=== PATIENT | female | born 1980 | race Asian ===

== ENCOUNTER 2018-05-15 19:46 | Emergency (ER) | payer BC ==
[~2018-05-15] VITALS: Ht 167.6 cm; Wt 54.4 kg
[~2018-05-15 19:46] MED LIST: HYDACE5 PO; IBUP600; IBUP800 PO; OSEL75CA PO; OXYACE5T PO; PREN-16 PO; PROM25 PO
[2018-05-15 20:14] LABS: BASOPHILS ABSOLUTE AUTO 0.09 K/mm3 (0.00-0.23); BASOPHILS PERCENT AUTO 0 % (0-2); EOSINOPHILS ABSOLUTE AUTO 0.05 K/mm3 (0.00-0.68); EOSINOPHILS PERCENT AUTO 0 % (0-6); Hematocrit 45.6 % (33.0-51.0); Hemoglobin 15.3 g/dL (11.5-16.0); IMMATURE GRAN ABSOLUTE AUTO 0.18 K/mm3 (0.00-0.10); IMMATURE GRAN PERCENT AUTO 1 % (0-1); LYMPHOCYTES PERCENT AUTO 5 % (21-46); MONOCYTES ABSOLUTE AUTO 2.14 K/mm3 (0.16-1.47); MONOCYTES PERCENT AUTO 8 % (4-13); Mean Corpuscular HGB 31.1 pg (26.0-34.0); Mean Corpuscular HGB Conc 33.6 g/dL (31.5-36.5); Mean Corpuscular Volume 93 fL (80-100); Mean Platelet Volume 9.4 fL (9.1-12.4); NEUTROPHILS ABSOLUTE AUTO 23.59 K/mm3 (1.96-9.15); NEUTROPHILS PERCENT AUTO 86 % (41-73); Platelet Count 374 K/mm3 (150-400); RDW Coefficient Variation 11.9 % (11.7-14.2); RDW Standard Deviation 40.5 fL (35.1-46.3); Red Blood Cell Count 4.92 M/mm3 (3.80-5.20); White Blood Cell Count 27.55 K/mm3 (4.00-11.30)
[2018-05-15 20:40] LABS: Alanine Aminotransfer (ALT/SGP 24 U/L (12-78); Albumin, Blood 4.9 g/dL (3.4-5.0); Albumin/Globulin Ratio 1.3 (0.8-1.8); Alk Phos 47 U/L (50-136); Anion Gap 11 mmol/L (6-16); Aspartate Aminotrans (AST/SGOT 27 U/L (12-37); Bilirubin, Total 0.6 mg/dL (0.1-1.0); Blood Urea Nitrogen 14 mg/dL (8-24); Bun/Creatinine Ratio 13.2 (12.0-20.0); CO2, Blood 24 mmol/L (21-32); Calcium, Blood 9.5 mg/dL (8.5-10.1); Chloride, Blood 102 mmol/L (98-108); Creatinine, Blood 1.06 mg/dL (0.40-1.00); Globulin, Blood 3.9 g/dL (2.2-4.0); Glomerular Filtration Rate >60 (60-); Glucose, Blood 116 mg/dL (70-99); Potassium, Blood 4.2 mmol/L (3.5-5.5); Sodium, Blood 137 mmol/L (136-145); Total Protein, Blood 8.8 g/dL (6.4-8.2)
[2018-05-15] MEDS ORDERED: Zofran Odt4 MG PO (21:54)
== END 2018-05-15 22:19 | disposition home or self-care (01) ==
LOC: ER 19:46
PROVIDERS: Nurse Practitioner Family
DX: K52.9 Noninfective gastroenteritis and colitis, unspecified (principal); Z79.899 Other long term (current) drug therapy
CPT/HCPCS: 36415; 76705; 80053; 83690; 85025; J2405; J7030

== ENCOUNTER → 2024-09-12 | Outpatient (CLI) | payer OTHER ==
[~2024-09-12] MED LIST changes: +Zofran Odt4 MG PO
== END ==
LOC: LAB 15:25 → LAB SHORT 15:25
DX: N39.0 Urinary tract infection, site not specified (principal); R30.0 Dysuria; R35.0 Frequency of micturition
CPT/HCPCS: 87077; 87086; 87186

== ENCOUNTER → 2025-01-09 | Outpatient (CLI) | payer OTHER ==
[~2025-01-09] MED LIST changes: +ACET500 PO; +Bentyl20 MG PO; +ESTRADIOL (ONC1 EA30 TOP; +MIRALAX17 GM PO; +OXAYDO5 M1 PO; +SULTRIDS PO
[2025-01-09 13:02] LABS: Source, Urine Clean Catch
[2025-01-09 14:53] LABS: Bilirubin, Urine Neg (Neg); Color, Urine Yellow (P-Yellow); Glucose Qualitative, Urine Neg (Neg); Ketones, Urine Neg (Neg); Leukocyte Esterase, Urine 3+ (Neg); Protein, Urine 2+ (Neg); Specific Gravity, Urine 1.010 (1.003-1.022); Urobilinogen, Urine NORM (Normal)
== END | disposition home or self-care (01) ==
LOC: LAB 11:06 → LAB SHORT 11:06
PROVIDERS: Obstetrics & Gynecology
DX: R30.0 Dysuria (principal)
CPT/HCPCS: 81001; 87077; 87086; 87186

== ENCOUNTER 2025-01-14 13:23 | Inpatient (IN) | payer OTHER ==
[~2025-01-14] VITALS: Ht 167.6 cm; Wt 53.1 kg
[~2025-01-14 13:23] MED LIST changes: -ESTRADIOL (ONC1 EA30 TOP; +ESTRADIOL (TWI1 EAC1 TOP; -IBUP800 PO
[2025-01-14 14:18] VITALS: BP 112/84
[2025-01-14] MEDS ORDERED: Prochlorperazine Edisylate 10 mg Vial IV PRN (15:20)
[2025-01-14] MEDS ORDERED: Ondansetron HCl 2 MG / ML 2ML Vial IV PRN (15:20)
[2025-01-14] MEDS ORDERED: Cefepime HCl 2,000 MG in NS 100 ML IV SCH (16:00)
[2025-01-14] MEDS ORDERED: NS 250 ML IV PRN (16:15)
--- NOTE | 2025-01-14 16:46 | NUR ---
ADMIT NOTE PT DIRECT ADMIT FROM OBGYN OFFICE DR. RUBIO. PER DR RUBIO URINE CX POSITIVE FOR PSUDEMONUS. IV ANTIBIOTIC THERAPY REQUIRED. IV PLACED IN LEFT FOREARM 22G. RECENT HYSTERECTOMY WITH LOWER ABD INCITION THATS CLOSED/HEALING/SHADIA. ONE SITE TO RLQ FROM ENRIQUE DRAIN THAT IS NOW CLOSED AND FIRST AID ATTENDANT. PER PT HAS BEEN USING WALKER THAT SHE DID BRING FROM HOME TO GET AROUND FOR DISTNACE OTHERWISE INDEPENDENT. A/OX4. ROOM AIR. ABLE TO MAKE NEEDS KNOWN. INSTRUCTED TO CALL FOR ASSISTANCE. MOTHER IN LAW AND FAMILY FRIEND AT BEDSIDE.
[2025-01-14 20:15] VITALS: BP 117/93
[2025-01-15 03:27] VITALS: BP 106/74
--- NOTE | 2025-01-15 04:04 | NUR ---
NIGHT SUMMARY: PT AOX4, SBA IN ROOM, ON IV ABX. PT HAS HYSTERECTOMY SCAR AND ENRIQUE SCAR THAT ARE SHADIA AND HEALING WELL. PT MEDICATED PER EMAR FOR PAIN. ABLE TO MAKE NEEDS KNOWN, CALL LIGHT WITHIN REACH AND BED IN LOW POSITION.
[2025-01-15 07:52] VITALS: BP 108/74
[2025-01-15] MEDS ORDERED: Polyethylene Glycol 3350 17 gm PO SCH ×2 (09:00→21:00)
[2025-01-15 11:50] VITALS: BP 115/88
[2025-01-15 11:52] VITALS: BP 125/96
--- NOTE | 2025-01-15 12:14 | NUR ---
PT REPORTED FEELING DIZZY AFTER WALKING TO BATHROOM. CHECKED BLOOD PRESSURE WHILE SITTING AND WAS WNL. HAD PT STAND AND RECHECK B/P WITH A SLIGHT INCREASE IN B/P AND HEART RATE. BUT PT STATED DIZZINESS DID NOT GET WORSE. PT STATED SHE HAS BEEN FEELING DIZZY WITH AMBULATION AT HOME. NO LIGHTHEADEDNESS OR CHANGES IN VISION REPORTED.
[2025-01-15 13:55] LABS: BASOPHILS ABSOLUTE AUTO 0.05 K/mm3 (0.00-0.23); BASOPHILS PERCENT AUTO 1 % (0-2); EOSINOPHILS ABSOLUTE AUTO 0.23 K/mm3 (0.00-0.68); EOSINOPHILS PERCENT AUTO 4 % (0-6); Hematocrit 34.7 % (33.0-51.0); Hemoglobin 11.6 g/dL (11.5-16.0); IMMATURE GRAN ABSOLUTE AUTO 0.01 K/mm3 (0.00-0.10); IMMATURE GRAN PERCENT AUTO 0 % (0-1); LYMPHOCYTES ABSOLUTE AUTO 1.37 K/mm3 (0.84-5.20); LYMPHOCYTES PERCENT AUTO 24 % (21-46); MONOCYTES ABSOLUTE AUTO 0.63 K/mm3 (0.16-1.47); MONOCYTES PERCENT AUTO 11 % (4-13); Mean Corpuscular HGB Conc 33.4 g/dL (31.5-36.5); Mean Corpuscular Volume 94 fL (80-100); NEUTROPHILS ABSOLUTE AUTO 3.43 K/mm3 (1.96-9.15); NEUTROPHILS PERCENT AUTO 60 % (41-73); NRBC ABSOLUTE 0.00 K/mm3 (0.00-0.02); NRBC Auto 0.0 /100 WBC (0.0-0.2); Platelet Count 549 K/mm3 (150-400); RDW Coefficient Variation 13.0 % (11.7-14.2); RDW Standard Deviation 44.9 fL (35.1-46.3)
[2025-01-15 15:01] LABS: Anion Gap 4.0 mmol/L (3-11); Blood Urea Nitrogen 9.0 mg/dL (8-24); CO2, Blood 29.0 mmol/L (21-32); Calcium, Blood 9.1 mg/dL (8.5-10.1); Chloride, Blood 104.0 mmol/L (98-108); Creatinine, Blood 0.45 mg/dL (0.40-1.00); Glucose, Blood 93.0 mg/dL (70-99); Potassium, Blood 3.7 mmol/L (3.5-5.5); Sodium, Blood 133.0 mmol/L (136-145)
[2025-01-15 15:18] VITALS: BP 118/86
[2025-01-15] MEDS ORDERED: DULCOLAX400 MG/5 M PO (18:41)
--- NOTE | 2025-01-15 19:19 | NUR ---
SUMMARY PT MEDICATED WITH PRN OXY 2.5 MG TWICE THIS SHIFT FOR INCISIONAL RELATED PAIN. PRN BENTYL WAS GIVEN THIS EVENING FOR BOWEL CRAMING/SPASM. PT REPORTS WAS ORIGINALLY PRESCRIBED MIRILAX AT HOME BID, BUT HAD TOLD ME SHE WAS ONLY TAKING IT DAILY. REQUESTING MIRILAX TO BE CHANGED BID TO HAVE A SECOND DOSE TODAY. PT HAD A SAMLL LOOSE BOWEL MOVEMENT BUT STATES STILL HAVING DISCOMFORT. DR. BENITES ROUNDED THIS AFTERNOON AND PT HAD CONCERNS OF NO LABS BEING DONE SO LABS WERE ORDERED PER DR. BENITES WELL BLOOD CULTURES WHICH ARE PENDING.
[2025-01-15 20:05] VITALS: BP 115/78
--- NOTE | 2025-01-16 05:07 | NUR ---
SHIFT SUMMARY: Pt admitted for UTI and is a full code. Is alert and able to make needs known. ADLs have been IND. when asked she stated that pain is about 3-4 and that is ok with her. Denies pain management with PRN medications when offered. IV to left forearm is patent with dressing that is CDI.
[2025-01-16 05:32] VITALS: BP 104/71
[2025-01-16 07:23] VITALS: BP 101/71
[2025-01-16] MEDS ORDERED: Magnesium Hydroxide Conc 10 ML UDC PO PRN (07:40)
[2025-01-16 15:42] VITALS: BP 105/73
[2025-01-16] MEDS ORDERED: OMEP20ER PO (16:24)
--- NOTE | 2025-01-16 17:21 | NUR ---
SHIFT SUMMARY: PT A&O X4. PLEASANT AND COOPERATIVE WITH CARE. NO ACUTE CHANGES THIS SHIFT. PT RECEIVING IV ABX W/O COMPLICATIONS. PYRIDIUM ADDED TO EMAR FOR BLADDER SPASMS BUT PT DENIED NEED FOR THIS MEDICATION AT TIME OF AM ASSESSMENT. PT HAS STATED PAIN IS MUCH IMPROVED AND DENIED NEED FOR PAIN MEDICATION. IV ABX INFUSING W/O COMPLICATIONS IN LFA IV. PT STATED SHE WAS ABLE TO HAVE BM THIS AM. PLAN FOR PT TO POTENTIALLY D/C TOMORROW. CALL LIGHT IN REACH. INDEPENDENT IN ROOM.
[2025-01-16] MEDS ORDERED: IBUP800 PO (18:14)
[2025-01-16] MEDS ORDERED: ONDA4ODT SL (18:15)
[2025-01-16 19:37] VITALS: BP 117/85
[2025-01-17 05:07] VITALS: BP 113/80
--- NOTE | 2025-01-17 06:25 | NUR ---
SHIFT SUMMARY PT SLEPT INTERMITTENTLY DURING THE NIGHT. UP IN ROOM INDEPENDENTLY. PT DENIES ANY DIZZINESS. MEDICATED FOR DYSURIA AND SPASMS X1 WITH PYRIDIUM WITH A SMALL AMOUNT OF RELIEF. IV ANTIBIOTICS CONTINUE PER ORDER.
[2025-01-17 07:21] VITALS: BP 108/70
[2025-01-17 09:56] VITALS: BP 116/88
[2025-01-17 16:45] VITALS: BP 101/81
--- NOTE | 2025-01-17 17:56 | NUR ---
PT WAS DIZZY AT THE BEGGINING OF SHIFT. VITALS STABLE AND MD NOTIFIED WITH NO CONCERNS.DIZZINESS SUBSIDED AROUND 1130 PT WILL BE STAYING FOR 2 MORE DAY TO RECIVE ABX. PT HAD NO C/O PAIN OR SOB. PT HAS NO QUESTIONS OR CONCERNS AT THIS TIME
[2025-01-17 20:01] VITALS: BP 117/83
[2025-01-18 05:19] VITALS: BP 115/74
--- NOTE | 2025-01-18 05:39 | NUR ---
SHIFT SUMMARY PT SLEPT INTERMITTENTLY DURING THE NIGHT. C/O SOME DISCOMFORT WHEN VOIDING, BUT DENIES THE NEED FOR PRN MEDICATION. URINE IS CLOUDY AND DARK YELLOW. PT INDEPENDENT TO BATHROOM. DENIES FEELINGS OF DIZZINESS OR CHILLS DURING THE NIGHT. IV ANTIBIOTICS CONTINUE PER ORDER.
[2025-01-18 07:36] VITALS: BP 109/78
[2025-01-18 15:24] VITALS: BP 101/73
--- NOTE | 2025-01-18 17:41 | NUR ---
PATIENT A/OX4, UP INDEPENDENTLY IN ROOM. CONTIUES TO REPORTS 3/10 LOWER ABDOMINAL PAIN AND SOME CRAMPING. DENIED NEED FOR PYRIDIUM OR PAIN MEDICATIONS THIS SHIFT. CONTINUES ON MERREM. WILL DC AFTER LAST DOSE OF ABX TOMORROW EVENING. NO OTHER NEW CONCERNS THIS SHIFT.
[2025-01-18 19:34] VITALS: BP 111/73
[2025-01-19 04:36] VITALS: BP 105/78
--- NOTE | 2025-01-19 06:12 | NUR ---
SHIFT SUMMARY PT SLEPT LONG INTERVALS DURING THE NIGHT. URINE CONTINUES TO BE SLIGHTLY CLOUDY. PT CONTINUES TO HAVE SOME BURNING AND DISCOMFORT TO LOW ABDOMEN- DENIES THE NEED FOR MEDICATION. IV ANTIBIOTICS CONTINUE PER ORDER. PT TO BE D/C'D AFTER 1600 DOSE OF ANTIBIIOTIC.
[2025-01-19 07:54] VITALS: BP 111/78
== END 2025-01-19 18:11 | disposition home or self-care (01) | DRG 690 ==
LOC: MEDS 13:23
PROVIDERS: Obstetrics & Gynecology; ADMIT Obstetrics & Gynecology
DX: N39.0 Urinary tract infection, site not specified (principal); Z16.24 Resistance to multiple antibiotics; B96.5 Pseudomonas (aeruginosa) (mallei) (pseudomallei) as the cause of diseases classified elsewhere; E89.40 Asymptomatic postprocedural ovarian failure; K59.00 Constipation, unspecified; N99.81 Other intraoperative complications of genitourinary system; N32.89 Other specified disorders of bladder; Z90.710 Acquired absence of both cervix and uterus; Z98.51 Tubal ligation status; Z90.722 Acquired absence of ovaries, bilateral; Z79.899 Other long term (current) drug therapy; Z79.891 Long term (current) use of opiate analgesic; Z98.890 Other specified postprocedural states
CPT/HCPCS: 80048; 85025; A9270; J0692; J7050

== ENCOUNTER → 2025-01-24 | Outpatient (CLI) | payer OTHER ==
[~2025-01-24] MED LIST changes: +DULCOLAX400 MG/5 M PO; +IBUP800 PO; +OMEP20ER PO; +ONDA4ODT SL
[2025-01-24 12:58] LABS: Source, Urine Voided
[2025-01-24 14:08] LABS: Bilirubin, Urine Neg (Neg); Glucose Qualitative, Urine Neg (Neg); Ketones, Urine Neg (Neg); Leukocyte Esterase, Urine 2+ (Neg); Protein, Urine 1+ (Neg); Specific Gravity, Urine 1.005 (1.003-1.022); Urobilinogen, Urine NORM (Normal)
[2025-01-24 14:51] LABS: Color, Urine Pale Yellow (P-Yellow)
[2025-01-24 14:53] LABS: Red Blood Cells, Urine 0-2 /hpf (0-2)
== END ==
LOC: LAB SHORT 12:57 → LAB 12:57
PROVIDERS: Obstetrics & Gynecology
DX: R39.89 Other symptoms and signs involving the genitourinary system (principal)
CPT/HCPCS: 81001; 87077; 87086; 87186